=== PATIENT | female | born 1985 | race African-American/Black ===

== ENCOUNTER 2019-08-21 02:54 | Emergency (ER) | payer OTHER ==
--- NOTE | 2019-08-21 03:01 | ED ---
General Adult HPI - General Stated complaint: NVD Time Seen by Provider: 08/21/19 03:01 - History of Present Illness Initial comments: Reid is a previously healthy 33-year-old female who comes the ER today via ambulance for evaluation of nausea vomiting and diarrhea. Patient reports she ate her normal dinner she cooked herself a hamburger she ate half of that she was feeling fine she went to bed she woke up with sudden onset of nausea and multiple episodes of nonbloody nonbilious emesis and diarrhea. Patient reports she couldn't get it to stop she could drive or self the hospital so she called the ambulance. Patient received Zofran and IV fluids in route she reports feeling much better nausea is resolved she's ready to drink water she does have a mild residual headache. She denies any known sick contacts or suspicious food intake she states the meat was fresh and had no foul odor or color. No one else ate the same food as her. - Related Data Home Medications Medication Instructions Recorded Confirmed No Known Home Medications 08/21/19 08/21/19 Allergies Allergy/AdvReac Type Severity Reaction Status Date / Time No Known Allergies Allergy Verified 08/21/19 03:08 Review of Systems ROS Statement: Those systems with pertinent positive or pertinent negative responses have been documented in the HPI. ROS Other: All systems not noted in ROS Statement are negative. General Exam - General Exam Comments Initial Comments: Physical Exam GENERAL: Patient is well-developed and well-nourished. Patient is nontoxic and well-hydrated and is in no distress. HENT: Normocephalic, Atraumatic. EYES: PERRL, EOMI PULMONARY: Unlabored respirations. No audible rales rhonchi or wheezing was noted. CARDIOVASCULAR: There is a regular rate and rhythm without any murmurs gallops or rubs. ABDOMEN: Soft and nontender with normal bowel sounds. SKIN: Skin is clear with no lesions or rashes and otherwise unremarkable. : Deferred NEUROLOGIC: Patient is alert and oriented x3. Moving all extremities spontaneously MUSCULOSKELETAL: Normal extremities with adequate strength and full range of motion. No lower extremity swelling or edema. No calf tenderness. PSYCHIATRIC: Normal psychiatric evaluation. Course Vital Signs 08/21/19 03:02 Temperature 97.4 F L Pulse Rate 68 Respiratory 20 Rate Blood Pressure 144/92 O2 Sat by Pulse 95 Oximetry Medical Decision Making - Medical Decision Making She was seen and evaluated history was obtained from the patient and EMS Patient with a couple hours of nausea vomiting and diarrhea which resolved after receiving IV Zofran. Patient received IV fluids. At this time patient has normal vital signs mild headache and is concerned she is dehydrated but is receiving IV fluids. I'll feel there is any indication for labs or further imaging is vision is soft nontender abdomen and is tolerating by mouth intake. Patient's comfortable with plan for supportive care discharge home. Patient was well to fluids was negative. - Lab Data Lab Results 08/21/19 Range/Units 03:11 Influenza Type A RNA Not Detected (Not Detectd) Influenza Type B (PCR) Not Detected (Not Detectd) Disposition Clinical Impression: Nausea vomiting and diarrhea Disposition: HOME SELF-CARE Condition: Stable Instructions (If sedation given, give patient instructions): Acute Nausea and Vomiting (ED) Is patient prescribed a controlled substance at d/c from ED?: No Referrals: None,Stated [Primary Care Provider] - 1-2 days
[2019-08-21] MEDS ORDERED: ONDANSETRON 4 MG ODT STARTER PACK 2 TAB BTL PO STA (04:00)
[2019-08-21] MEDS ORDERED: ACETAMINOPHEN TAB 325 MG TAB PO STA (04:03)
[2019-08-21] MEDS ORDERED: CALCIUM CARBONATE 500 MG CHEWABLE PO STA (05:08)
[2019-08-21 05:14] VITALS: BP 126/72; PULSE 82; RESP 18; TEMP 97.9
== END 2019-08-21 05:14 | disposition home or self-care (01) ==
LOC: EC 02:54
DX: R11.2 Nausea with vomiting, unspecified (principal); R19.7 Diarrhea, unspecified; R51 Headache
CPT/HCPCS: 87502; 99284; S0119

== ENCOUNTER 2019-10-10 13:25 | Emergency (ER) | payer OTHER ==
[2019-10-10 13:33] VITALS: TEMP 98
[2019-10-10 14:06] LABS: Basophils % (A) 0 %; Eosinophils # (A) 0.2 k/uL (0-0.7); Eosinophils % (A) 2 %; HCT 39.3 % (34.0-46.0); HGB 12.8 gm/dL (11.4-16.0); Lymphocytes # (A) 1.8 k/uL (1.0-4.8); Lymphocytes % (A) 15 %; MCH 29.5 pg (25.0-35.0); MCHC 32.6 g/dL (31.0-37.0); MCV 90.7 fL (80.0-100.0); Mean Platelet Volume 7.4; Monocytes # (A) 0.4 k/uL (0-1.0); Monocytes % (A) 4 %; Neutrophils # (A) 9.3 k/uL (1.3-7.7); Neutrophils % (A) 79 %; Platelet Count 295 k/uL (150-450); RBC 4.33 m/uL (3.80-5.40); RDW 12.8 % (11.5-15.5); WBC 11.8 k/uL (3.8-10.6)
[2019-10-10 14:16] LABS: ALT 19 U/L (4-34); AST 28 U/L (14-36); African American GFR (CKD) >90 (>60 ml/min/1.73 sqM); Albumin 4.1 g/dL (3.5-5.0); Alkaline Phosphatase 71 U/L (38-126); Anion Gap 8 mmol/L; Blood Urea Nitrogen 17 mg/dL (7-17); Calcium 9.1 mg/dL (8.4-10.2); Carbon Dioxide 22 mmol/L (22-30); Chloride 106 mmol/L (98-107); Glucose 94 mg/dL (74-99); Non-African American GFR(CKD) >90 (>60 ml/min/1.73 sqM); Potassium 3.5 mmol/L (3.5-5.1); Sodium 136 mmol/L (137-145); Total Bilirubin 0.3 mg/dL (0.2-1.3); Total Protein 7.1 g/dL (6.3-8.2)
[2019-10-10 14:19] LABS: Appearance,Urine Clear (Clear); Bilirubin,Urine Negative (Negative); Blood,Urine Moderate (Negative); Color,Urine Yellow; Glucose,Urine (UA) Negative (Negative); Ketones,Urine Negative (Negative); Leukocyte Esterase,Urine Negative (Negative); Mucus,Urine Few /hpf; Nitrite,Urine Negative (Negative); Protein,Urine Trace (Negative); RBC,Urine >182 /hpf (0-5); Specific Gravity,Urine 1.037 (1.001-1.035); Squamous Epithelial Cell,Urine <1 /hpf (0-4); WBC,Urine 1 /hpf (0-5)
[2019-10-10 14:19] LABS: D-Dimer 0.19 mg/L FEU (<0.60); INR 0.9 (<1.2); Partial Thromboplastin Time 22.4 sec (22.0-30.0); Prothrombin Time 9.3 sec (9.0-12.0)
[2019-10-10 14:43] VITALS: BP 128/79; PULSE 100; RESP 18
--- NOTE | 2019-10-10 14:43 | XR ---
EXAMINATION TYPE: XR chest 2V DATE OF EXAM: 10/10/2019 COMPARISON: NONE HISTORY: Cough and chest pain. TECHNIQUE: Frontal and lateral views of the chest are obtained. FINDINGS: Overlying EKG leads are seen. There is no focal air space opacity, pleural effusion, or pne umothorax seen. The cardiac silhouette size is within normal limits. The osseous structures are in tact. IMPRESSION: No acute cardiopulmonary process.
--- NOTE | 2019-10-10 14:49 | ED ---
SOB HPI - General Chief Complaint: Shortness of Breath Stated Complaint: chest & abd pain Source: patient, EMS Mode of arrival: EMS Limitations: no limitations - History of Present Illness Initial Comments: The patient is a 34-year-old female in no past history presents emergency room with reported cough and chest wall pain. The patient states that she has had a cough for the past several days. Last night she began to develop abdominal cramping which radiated up to her back. States that she now has pain situated in between her shoulder blades which is worse with deep inspiration and movement. States it is also palpable. Cough is nonproductive. Admits to chills without fevers. Denies sick contacts or recent travel. No history of DVT or PE. No calf pain or swelling. Does have a family history of DVT but this was in her and after she had surgery. No ripping or tearing sensation to her back. Denies any numbness or weakness. No history of asthma or COPD. Yair turner does report that she smokes marijuana. Denies current abdominal pain or anterior chest pain. Reports that she is currently on her menstrual cycle and has no concern for . No history of cardiac disease. No history of IVDA. There are no other alleviating, precipitating or modifying factors - Related Data Home Medications Medication Instructions Recorded Confirmed Acetaminophen [Tylenol Extra 1,000 mg PO Q6H PRN 10/10/19 10/10/19 Strength] Previous Rx's Medication Instructions Recorded Albuterol Sulfate [Proair Hfa] 1 - 2 puff INHALATION Q4HR PRN #1 10/10/19 inhaler guaiFENesin [Mucinex] 600 mg PO Q12HR #20 tablet.er 10/10/19 predniSONE [Deltasone] 20 mg PO BID #10 tab 10/10/19 Allergies Allergy/AdvReac Type Severity Reaction Status Date / Time No Known Allergies Allergy Verified 10/10/19 14:22 Review of Systems ROS Statement: Those systems with pertinent positive or pertinent negative responses have been documented in the HPI. ROS Other: All systems not noted in ROS Statement are negative. Past Medical History Past Medical History: GERD/Reflux History of Any Multi-Drug Resistant Organisms: None Reported Past Surgical History: Orthopedic Surgery Additional Past Surgical History / Comment(s): Right foot surgery Past Psychological History: No Psychological Hx Reported Smoking Status: Current every day smoker Past Alcohol Use History: Occasional Past Drug Use History: Marijuana General Exam Limitations: no limitations Course Vital Signs 10/10/19 10/10/19 10/10/19 13:26 13:35 14:42 Temperature 98 F Pulse Rate 96 100 Respiratory 14 14 18 Rate Blood Pressure 136/84 128/79 O2 Sat by Pulse 96 98 Oximetry 10/10/19 15:41 Temperature 98 F Pulse Rate 100 Respiratory 18 Rate Blood Pressure 128/79 O2 Sat by Pulse 98 Oximetry Medical Decision Making - Medical Decision Making Upon arrival patient is placed in room 5. A thorough history and physical exam was performed. The patient is perc negative. I did perform a d-dimer level which was negative. Additional laboratory studies were conducted to include a troponin which was negative. Urinalysis demonstrates blood but no other cells. HCG is not detected. Chest x-ray was performed which demonstrates no acute tho racic findings. I discussed results with the patient. She was given Naprosyn for her chest pain. I discuss the diagnosis, differential treatment options. The patient is requesting something for cough. I did provide her with prescriptions for an inhaler, prednisone and Mucinex. The patient is to follow- up with primary care doctor for which she states she does not have one. She is provided [facility] as well as Dr. Youngblood's office. She is to follow-up within 2-4 days for reevaluation. If she has any new or worsening symptoms she should return to the emergency room. Patient was in agreement treatment plan she is discharged home in stable condition - Lab Data Result diagrams: 10/10/19 13:48 10/10/19 13:48 Lab Results 10/10/19 10/10/19 10/10/19 Range/Units 13:48 13:48 13:48 WBC 11.8 H (3.8-10.6) k/uL RBC 4.33 (3.80-5.40) m/uL Hgb 12.8 (11.4-16.0) gm/dL Hct 39.3 (34.0-46.0) % MCV 90.7 (80.0-100.0) fL MCH 29.5 (25.0-35.0) pg MCHC 32.6 (31.0-37.0) g/dL RDW 12.8 (11.5-15.5) % Plt Count 295 (150-450) k/uL Neutrophils % 79 % Lymphocytes % 15 % Monocytes % 4 % Eosinophils % 2 % Basophils % 0 % Neutrophils # 9.3 H (1.3-7.7) k/uL Lymphocytes # 1.8 (1.0-4.8) k/uL Monocytes # 0.4 (0-1.0) k/uL Eosinophils # 0.2 (0-0.7) k/uL Basophils # 0.0 (0-0.2) k/uL PT 9.3 (9.0-12.0) sec INR 0.9 (<1.2) APTT 22.4 (22.0-30.0) sec D-Dimer 0.19 (<0.60) mg/L FEU Sodium 136 L (137-145) mmol/L Potassium 3.5 (3.5-5.1) mmol/L Chloride 106 (98-107) mmol/L Carbon Dioxide 22 (22-30) mmol/L Anion Gap 8 mmol/L BUN 17 (7-17) mg/dL Creatinine 0.53 (0.52-1.04) mg/dL Est GFR (CKD-EPI)AfAm >90 (>60 ml/min/1.73 sqM) Est GFR (CKD-EPI)NonAf >90 (>60 ml/min/1.73 sqM) Glucose 94 (74-99) mg/dL Calcium 9.1 (8.4-10.2) mg/dL Total Bilirubin 0.3 (0.2-1.3) mg/dL AST 28 (14-36) U/L ALT 19 (4-34) U/L Alkaline Phosphatase 71 (38-126) U/L Troponin I (0.000-0.034) ng/mL Total Protein 7.1 (6.3-8.2) g/dL Albumin 4.1 (3.5-5.0) g/dL Urine Color Urine Appearance (Clear) Urine pH (5.0-8.0) Ur Specific [place] (1.001-1.035) Urine Protein (Negative) Urine Glucose (UA) (Negative) Urine Ketones (Negative) Urine Blood (Negative) Urine Nitrite (Negative) Urine Bilirubin (Negative) Urine Urobilinogen (<2.0) mg/dL Ur Leukocyte Esterase (Negative) Urine RBC (0-5) /hpf Urine WBC (0-5) /hpf Ur Squamous Epith Cells (0-4) /hpf Urine Mucus (None) /hpf Urine HCG, Qual (Not Detectd) 10/10/19 10/10/19 10/10/19 Range/Units 13:48 13:52 13:52 WBC (3.8-10.6) k/uL RBC (3.80-5.40) m/uL Hgb (11.4-16.0) gm/dL Hct (34.0-46.0) % MCV (80.0-100.0) fL MCH (25.0-35.0) pg MCHC (31.0-37.0) g/dL RDW (11.5-15.5) % Plt Count (150-450) k/uL Neutrophils % % Lymphocytes % % Monocytes % % Eosinophils % % Basophils % % Neutrophils # (1.3-7.7) k/uL Lymphocytes # (1.0-4.8) k/uL Monocytes # (0-1.0) k/uL Eosinophils # (0-0.7) k/uL Basophils # (0-0.2) k/uL PT (9.0-12.0) sec INR (<1.2) APTT (22.0-30.0) sec D-Dimer (<0.60) mg/L FEU Sodium (137-145) mmol/L Potassium (3.5-5.1) mmol/L Chloride (98-107) mmol/L Carbon Dioxide (22-30) mmol/L Anion Gap mmol/L BUN (7-17) mg/dL Creatinine (0.52-1.04) mg/dL Est GFR (CKD-EPI)AfAm (>60 ml/min/1.73 sqM) Est GFR (CKD-EPI)NonAf (>60 ml/min/1.73 sqM) Glucose (74-99) mg/dL Calcium (8.4-10.2) mg/dL Total Bilirubin (0.2-1.3) mg/dL AST (14-36) U/L ALT (4-34) U/L Alkaline Phosphatase (38-126) U/L Troponin I <0.012 (0.000-0.034) ng/mL Total Protein (6.3-8.2) g/dL Albumin (3.5-5.0) g/dL Urine Color Yellow Urine Appearance Clear (Clear) Urine pH 6.0 (5.0-8.0) Ur Specific [place] 1.037 H (1.001-1.035) Urine Protein Trace H (Negative) Urine Glucose (UA) Negative (Negative) Urine Ketones Negative (Negative) Urine Blood Moderate H (Negative) Urine Nitrite Negative (Negative) Urine Bilirubin Negative (Negative) Urine Urobilinogen 3.0 (<2.0) mg/dL Ur Leukocyte Esterase Negative (Negative) Urine RBC >182 H (0-5) /hpf Urine WBC 1 (0-5) /hpf Ur Squamous Epith Cells <1 (0-4) /hpf Urine Mucus Few H (None) /hpf Urine HCG, Qual Not Detected (Not Detectd) - EKG Data EKG Comments: EKG demonstrates normal sinus rhythm with a ventricular rate of 86. LA interval 152. QRS 82. QTC of 416. No acute ST segment elevations or depressions con cerning for ischemic changes Disposition Clinical Impression: Chest wall pain Disposition: HOME SELF-CARE Instructions (If sedation given, give patient instructions): Acute Bronchitis (ED) Additional Instructions: Please follow-up with primary care doctor in 2-4 days. Return to the emergency room for new or worsening symptoms Prescriptions: predniSONE [Deltasone] 20 mg PO BID #10 tab guaiFENesin [Mucinex] 600 mg PO Q12HR #20 tablet.er Albuterol Sulfate [Proair Hfa] 1 - 2 puff INHALATION Q4HR PRN #1 inhaler PRN Reason: difficulty in breathing Is patient prescribed a controlled substance at d/c from ED?: No Referrals: None,Stated [Primary Care Provider] - 1-2 days Cindy Youngblood MD [STAFF PHYSICIAN] - 1-2 days [facility] [NON-STAFF] - 1-2 days Time of Disposition: 15:30
[2019-10-10] MEDS ORDERED: NAPROXEN 250 MG TAB PO STA (15:25)
== END 2019-10-10 15:41 | disposition home or self-care (01) ==
LOC: EC 13:25
DX: R07.89 Other chest pain (principal); R06.02 Shortness of breath; R10.9 Unspecified abdominal pain; R05 Cough; F17.200 Nicotine dependence, unspecified, uncomplicated
CPT/HCPCS: 36415; 71046; 80053; 81001; 81025; 84484; 85025; 85379; 85610; 85730; 93005; 99285